=== PATIENT | female | born 1940 | race Caucasian/White ===

== ENCOUNTER 2020-03-01 16:15 | Emergency (ER) | payer MEDICARE, SELFPAY ==
[2020-03-01 16:47] VITALS: BMI 27.4
--- NOTE | 2020-03-01 16:50 | XR_ITS ---
PROCEDURE: XR CHEST 2V CLINICAL HISTORY: COUGH Dry cough COMPARISON: No exams were available for comparison FINDINGS: Normal heart size. Coronary artery stent is present. The lungs are clear without infiltrates, suspicious nodules, or pleural effusions. No acute bony abnormalities. IMPRESSION: No acute findings. Dictated by: Toni Valentine MD 03/01/2020 18:40 Electronically signed by Toni Valentine MD in [place] 03/01/2020 18:40
[2020-03-01 16:52] VITALS: BP 134/88; PULSE 83; RESP 21; TEMP 36.9; O2SAT 98; BMI 27.4
--- NOTE | 2020-03-01 16:59 | HMH.EDUTC ---
[facility] [place] Clinical Impression: Viral syndrome Disposition: Home, Self-Care Condition on Discharge: Good Instructions: DI for Viral Syndrome Additional Instructions: Drink plenty of fluids. Take tylenol or ibuprofen for pain or fever. The results of the COVID-19 swab will be back with in 48 hours. You should hear from the hospital regarding those results. If you haven't heard back within 48 hours, please call here. Follow up with your regular doctor. GO TO THE ER FOR ANY WORSENING SYMPTOMS Referrals: Kary Benton [Primary Care Provider] - Time of Disposition: 17:37 Medical Decision Making - Medical Records Medical records reviewed: Yes: I reviewed the patient's medical records. - Aj Inquiry Pt receiving controlled substance: No Vital Signs: 03/01/20 16:52 03/01/20 17:38 Temperature 98.4 F 98.4 F Temperature Source Oral Pulse Rate 83 Pulse Rate [Right Brachial] 83 Respiratory Rate 21 21 Blood Pressure 134/88 Blood Pressure [Right Arm] 134/88 Blood Pressure Mean [Right Arm] 103 Blood Pressure Source [Right Arm] Automatic Cuff Blood Pressure Position [Right Arm] Sitting 02 Sat by Pulse Oximetry 98 Oxygen Delivery Method Room Air - Lab Data Lab results reviewed: Yes: I reviewed the patient's lab results. Lab Results 03/01/20 16:50: Influenza Type A Ag Negative, Influenza Type B Ag Negative 03/01/20 16:50: Strep Scn [facility] Negative 03/01/20 17:25: COVID-19 ([facility]) Not detected Orders (Tests/Meds): ORDERS Category Date Time Status Strep Screen Confirmation Stat Micro 03/01/20 16:50 Received - Radiology Data #1 Image(s): Chest Image Reviewed: Yes I reviewed the patient's radiology image, Yes I have reviewed radiologist's interpretation Preliminary Findings: No Infiltrates Seen FINDINGS: Normal heart size. Coronary artery stent is present. The lungs are clear without infiltrates, suspicious nodules, or pleural effusions. No acute bony abnormalities. IMPRESSION: No acute findings. [facility] [place] - General Stated complaint: Covid test Time Seen by Provider: 03/01/20 17:00 - History of Present Illness Provider Complaint: She reports that she was exposed to COVID-19 around 1 month ago. Over the past 2 weeks she has ran a low grade fever up to 100.2, she has had a dry cough, sore throat, and nausea. Over the past 2 days or so, she has began having moderate to severe body aches that are worse at night when she goes to bed. She has a history of asthma, but she has not had any recent symptoms or shortness of breath. - Related Data Allergies Allergy/AdvReac Type Severity Reaction Status Date / Time bethanechol Allergy Verified 03/01/20 16:49 hydrochlorothiazide Allergy Verified 03/01/20 16:49 Penicillins Allergy Verified 03/01/20 16:49 prednisolone Allergy Verified 03/01/20 16:49 Sulfa (Sulfonamide Allergy Verified 03/01/20 16:49 Antibiotics) [facility] History - Hepatitis A Screen Attestation statement:: This patient has been screened for Hepatitis A risk factors. I have reviewed the patient's past medical history: Yes ROS Obtained: Yes All systems reviewed & no additional complaints - Constitutional Constitutional: Denies chills, Denies fever(s) - Eyes Eyes: Denies eye discharge - ENT Ears, Nose, Mouth, and Throat: Reports as per HPI - Cardiovascular Cardiovascular: Denies chest pain - Respiratory Respiratory: Yes chest congestion, Yes cough Physical Exam - General General appearance: alert, in no apparent distress - Head Head exam: atraumatic, normocephalic, normal inspection - Eye Eye exam: Present: normal appearance, PERRL, EOMI - ENT ENT exam: Present: normal exam, normal oropharynx, mucous membranes moist, TM's normal bilaterally, normal external ear exam - Neck Neck exam: Present: normal inspection, full ROM, trachea midline. Absent: meningismus, lymphadenopathy - Chest Lian
[2020-03-01 17:25] LABS: UTC Influenza A Antigen Negative (Negative); UTC Influenza B Antigen Negative (Negative); UTC Strep Screen (Rapid) Negative (Negative)
[2020-03-01 17:38] VITALS: BP 134/88; PULSE 83; RESP 21; TEMP 36.9; O2SAT 98
[2020-03-02 16:28] LABS: Covid-19 Nasal PCR Sendout Lex NOT DETECTED
--- NOTE | 2020-03-02 16:50 | PC.NURSE ---
notified Salinas Swanson APRN of negative COVID 19 results.
--- NOTE | 2020-03-02 17:05 | PC.NURSE ---
notified pt of negative COVID 19 results.
== END 2020-03-01 17:45 | disposition home or self-care (01) ==
PROVIDERS: Emergency Provider Nurse Practitioner Family; PCP Family Medicine
DX: B34.9 Viral infection, unspecified (principal); Z95.5 Presence of coronary angioplasty implant and graft; J45.909 Unspecified asthma, uncomplicated; Z88.0 Allergy status to penicillin; Z88.2 Allergy status to sulfonamides; Z88.8 Allergy status to other drugs, medicaments and biological substances
CPT/HCPCS: G0463; 71046; 87804; 87880; 99202; U0003

== ENCOUNTER → 2020-07-22 11:44 | Outpatient (CLI) | payer MEDICARE, SELFPAY ==
[2020-07-23 15:36] LABS: Covid-19 Nasal PCR Sendout Lex Not Detected
== END ==
PROVIDERS: PCP Family Medicine; Visit Provider Family Medicine
DX: Z03.818 Encounter for observation for suspected exposure to other biological agents ruled out (principal)
CPT/HCPCS: U0004

== ENCOUNTER 2024-08-06 11:49 | Outpatient (CLI) | payer MEDICARE, SELFPAY ==
[2024-08-06 12:00] VITALS: BP 137/83; PULSE 91; RESP 18; TEMP 36.8; O2SAT 98
[2024-08-06] MEDS: DENOSUMAB 60 MG/ML SYRINGE SQ (12:05)
[2024-08-06 12:20] VITALS: BP 137/83; PULSE 91; RESP 18; TEMP 36.8; O2SAT 98
== END 2024-08-06 12:25 | disposition home or self-care (01) ==
LOC: INF 11:51
PROVIDERS: PCP Family Medicine; Visit Provider Family Medicine
DX: M85.80 Other specified disorders of bone density and structure, unspecified site (principal)
CPT/HCPCS: 96372; J0897

== ENCOUNTER 2025-03-04 13:13 | Outpatient (CLI) | payer MEDICARE, SELFPAY ==
[2025-03-04 13:26] VITALS: BP 122/69; PULSE 84; RESP 16; TEMP 36.6; O2SAT 98
[2025-03-04] MEDS: DENOSUMAB 60 MG/ML SYRINGE SUBCUT (13:26)
[2025-03-04 13:45] VITALS: BP 119/70; PULSE 81; RESP 14; TEMP 36.6; O2SAT 98
== END 2025-03-04 13:50 | disposition home or self-care (01) ==
LOC: INF 13:19
PROVIDERS: PCP Family Medicine; Visit Provider Family Medicine
DX: M81.0 Age-related osteoporosis without current pathological fracture (principal)
CPT/HCPCS: 96372; J0897